=== PATIENT | female | born 1950 | race American Indian/Alaskan Native ===

== ENCOUNTER 2017-02-25 11:34 | Inpatient (IN) | payer MEDICARE, MEDICAID ==
[2017-02-25] MEDS ORDERED: Magnesium Hydroxide 400 MG/5 ML Susp 30 ML Cup PO PRN ×2 (12:17→14:15)
[2017-02-25] MEDS ORDERED: Polyethylene Glycol 3350 Powder 17 GM Packet PO PRN (12:17)
[2017-02-25] MEDS ORDERED: Sodium Chloride 0.9% 10 ML Syringe FLUSH PRN (12:17)
[2017-02-25] MEDS ORDERED: Ondansetron 4 MG/2 ML SDV IVPUSH PRN (12:17)
[2017-02-25] MEDS ORDERED: Acetaminophen 325 MG Tab PO PRN ×2 (12:17→14:15)
[2017-02-25] MEDS ORDERED: Albuterol/Ipratropium 3.0-0.5 MG/3 ML Neb Soln NEB PRN (12:17)
[2017-02-25] MEDS ORDERED: Sodium Chloride 0.9% 1,000 ML IV SCH (12:30)
--- NOTE | 2017-02-25 12:45 | PCM.HP ---
H&P History of Present Illness - General Date of Service: 02/25/17 Admit Problem/Dx: Admission Diagnosis/Problem Admission Diagnosis/Problem Hypoxia Source of Information: Patient, Family (daughter) History Limitations: Reports: Other (patient is not verbal but can she nods for yes lift head for no.) - History of Present Illness Initial Comments - Free Text/Narative: 67-year-old female was best medical history of CVA in 2010, diabetes mellitus type 2, anemia, generalized anxiety disorder, GERD, history of smoking, hypertension, hypothyroidism, neuropathic pain presented to the hospital from the long term where she was evaluated by Dr. Aj there today who called for admission to the hospital for possible pneumonia. History was obtained from Dr. Herrera, patient, and patient's daughter. Patient has been having upper respiratory symptoms worse cough for the past 10 days. She admitted having fever 2 days ago. Today her systolic blood pressure was 82. She was recently seen at the clinic and described Z-Ryne for sore throat. For the last 2-3 days patient has been having shortness breath and worsening of her cough. Her cough is productive of yellow sputum. She has been more weak and tired than usual. He also admitted that patient had saturation in the 80s yesterday and she fail in the bathroom when she tried to go use it by herself. She stated that she hit her head. No loss of consciousness. She had bruises on her right hip area. Otherwise she denies any pain from the fall. They deny headache, change in vision, change in her right-sided weakness from her previous stroke, nausea, vomiting, chest pain, palpitation, abdominal pain, constipation, blood in the stool, black stool, diarrhea, urinary symptoms, lower extremities edema, any other symptoms or concerns. No workup has been done - Related Data Allergies/Adverse Reactions: Allergies Allergy/AdvReac Type Severity Reaction Status Date / Time bee pollen [Bee Pollen] Allergy Anaphylactic Verified 02/11/17 10:18 Shock codeine Allergy Abdominal Verified 02/11/17 10:18 Pain levofloxacin [From Levaquin] Allergy Abdominal Verified 02/11/17 10:18 Pain Penicillins Allergy Hives Verified 02/11/17 10:18 tramadol Allergy Abdominal Verified 02/11/17 10:18 Pain venom-wasp [Wasp Venom] Allergy Anaphylactic Verified 02/11/17 10:18 Shock Home Medications: Home Meds Aspirin [Halfprin] 81 mg PO BEDTIME 01/21/14 [History] Clopidogrel Bisulfate [Clopidogrel] 75 mg PO DAILY 01/21/14 [History] Docusate Sodium/Sennosides [Senokot-S] 2 each PO BID 01/21/14 [History] Gabapentin [Gabapentin] 1,200 mg PO BID 01/21/14 [History] Lisinopril [Lisinopril] 5 mg PO DAILY 01/21/14 [History] Magnesium Hydroxide [Milk of Magnesia Concentrated] 10 ml PO DAILY PRN 01/21/14 [History] Montelukast [Singulair] 10 mg PO BEDTIME 01/21/14 [History] Polyethylene Glycol 3350 [MiraLAX] 17 gm PO DAILY 01/21/14 [History] Rosuvastatin Calcium [Crestor] 20 mg PO BEDTIME 01/21/14 [History] metFORMIN [Glucophage] 1,000 mg PO BIDMEALS 01/21/14 [History] DULoxetine HCl [Duloxetine HCl] 60 mg PO DAILY 03/12/15 [History] Fluticasone Propionate [Flonase] 1 inh NASBOTH DAILY 03/12/15 [History] Pantoprazole [Protonix] 40 mg PO ACDINNER 03/12/15 [History] Multivitamin [Multi-Day Vitamins] 1 tab PO DAILY 05/26/15 [History] Menthol [Biofreeze] 1 applic TOP TID 05/31/15 [History] EPINEPHrine [Epipen] 0.3 mg IM ASDIRECTED PRN 06/25/15 [History] Insulin Detemir [Levemir] 10 unit SQ BEDTIME 01/07/16 [History] Insulin Aspart [NovoLOG] 5 units SQ WITHBREAKFAST 02/11/17 [History] Acetaminophen 650 mg PO Q4H PRN 02/25/17 [History] Azithromycin [IJP: Azithromycin] 250 mg PO BEDTIME 02/25/17 [History] Cyanocobalamin (Vitamin B-12) [Cyanocobalamin Injection] 1,000 mcg IJ .FR [History] Levothyroxine Sodium [Synthroid] 75 mcg PO DAILY 02/25/17 [History] Melatonin 5 mg PO BEDTIME 02/25/17 [History] guaiFENesin 200 mg PO Q4H PRN 02/25/17 [History] Past Medical History HEENT History: Reports: Allergic Rhinitis Other HEENT History: DYSPHAGIA Cardiovascular History: Reports: High Cholesterol, Hypertension, PVD Respiratory History: Reports: None Gastrointestinal History: Reports: Chronic Constipation, GERD Genitourinary History: Reports: None COURT REPORTER History: Reports: None Musculoskeletal History: Reports: Fracture, Osteoarthritis, Other (See Below) Other Musculoskeletal History: CARPAL TUNNEL, FRACTURE OF RIGHT TALUS 03/30 Neurological History: Reports: CVA, TIA, Other (See Below) Other Neuro History: HEMIPLEGIA RIGHT SIDE; aphasia Psychiatric History: Reports: Depression Endocrine/Metabolic History: Reports: Diabetes, Type II, Hypothyroidism, Obesity /BMI 30+ Hematologic History: Reports: Anemia Immunologic History: Reports: None Oncologic (Cancer) History: Reports: None Dermatologic History: Reports: None - Infectious Disease History Infectious Disease History: Reports: Chicken Pox - Past Surgical History Head Surgeries/Procedures: Reports: None HEENT Surgical History: Reports: Tonsillectomy Cardiovascular Surgical History: Reports: Carotid Endarterectomy GI Surgical History: Reports: None Female Surgical History: Reports: None, Tubal Ligation Musculoskeletal Surgical History: Reports: Carpal Tunnel Social & Family History - Family History Family Medical History: Noncontributory - Tobacco Use Smoking Status *Q: Current Every Day Smoker Years of Tobacco use: 52 Packs/Tins Daily: 0.2 Used Tobacco, but Quit: Yes Month Tobacco Last Used: 200 Second Hand Smoke Exposure: No - Caffeine Use Caffeine Use: Reports: None - Alcohol Use Days Per Week of Alcohol Use: 0 - Recreational Drug Use Recreational Drug Use: No Drug Use in Last 12 Months: No - Living Situation & Occupation Living situation: Reports: Extended Care Facility Occupation: Retired H&P Review of Systems - Review of Systems: Review Of Systems: ROS reveals no pertinent complaints other than HPI. Exam - Exam Exam: See Below - Exam General: Alert, Cooperative (But nonverbal), Mild Distress, Other (She understands questions and follow commands appropriately). No: Moderate Distress , Severe Distress, Sedated, Lethargic, Obtunded HEENT: Conjunctiva Clear, EACs Clear, EOMI, Hearing Intact, Normal Nasal Septum , Posterior Pharynx Clear, Pupils Equal, Pupils Reactive, TMs Clear Neck: Supple, Trachea Midline Lungs: Crackles (Left mid lung), Wheezing (Left mid lung), Other (Mild tachypnea ). No: Rub, Stridor Cardiovascular: Regular Rate, Regular Rhythm GI/Abdominal Exam: Normal Bowel Sounds, Soft, Non-Tender, No Organomegaly, No Distention, No Abnormal Bruit, No Mass (Female) Exam: Deferred Rectal (Female) Exam: Deferred Back Exam: Normal Inspection, Full Range of Motion. No: CVA Tenderness (L), CVA Tenderness (R) Extremities: Normal Inspection, Normal Range of Motion, Non-Tender, No Pedal Edema, Normal Capillary Refill Peripheral Pulses: 2+: Radial (L), Radial (R) Skin: Warm, Dry, Intact Neurological: Other (Right-sided weakness, nonverbal) Psychiatric: Normal Mood, Other (However overall is difficult to assess due to being nonverbal) - Patient Data Result Diagrams: 02/25/17 12:50 02/25/17 12:50 *Q Meaningful Use (ADM) - VTE *Q VTE Criteria *Q: - Stroke *Q Stroke Criteria *Q: - AMI *Q AMI Criteria *Q: - Problem List (1) Healthcare-associated pneumonia SNOMED Code(s): 738521957 ICD Code: J18.9 - PNEUMONIA, UNSPECIFIED ORGANISM Status: Acute Priority : High Current Visit: Yes (2) Fall at long term SNOMED Code(s): 082718945 ICD Code: W19.XXXA - UNSPECIFIED FALL, INITIAL ENCOUNTER; Y92.129 - UNSP PLACE IN [facility] PLACE Status: Acute Priority: Medium Current Visit: Yes (3) Hypertension SNOMED Code(s): 90997120 ICD Code: I10 - ESSENTIAL (PRIMARY) HYPERTENSION Status: Chronic Current Visit: Yes (4) Hypoxia SNOMED Code(s): 717517225 ICD Code: R09.02 - HYPOXEMIA Status: Acute Priority: High Current Visit : Yes (5) Contusion of right hip SNOMED Code(s): 08856706 ICD Code: S70.01XA - CONTUSION OF RIGHT HIP, INITIAL ENCOUNTER Status: Acute Priority: Medium Current Visit: No Qualifiers: Encounter type: initial encounter Qualified Code(s): S70.01XA - Contusion of right hip, initial encounter (6) Diabetes mellitus type 2 in obese SNOMED Code(s): 14059505 ICD Code: E11.69 - TYPE 2 DIABETES MELLITUS WITH OTHER SPECIFIED COMPLICATION ; E66.9 - OBESITY, UNSPECIFIED Status: Chronic Current Visit: Yes (7) GERD (gastroesophageal reflux disease) SNOMED Code(s): 420891906 ICD Code: K21.9 - GASTRO-ESOPHAGEAL REFLUX DISEASE WITHOUT ESOPHAGITIS Status: Chronic Current Visit: Yes (8) History of CVA (cerebrovascular accident) SNOMED Code(s): 052964142 ICD Code: Z86.73 - PRSNL HX OF TIA (TIA), AND CEREB INFRC W/O RESID DEFICITS Status: Chronic Current Visit: Yes (9) Hypothyroidism SNOMED Code(s): 21649751 ICD Code: E03.9 - HYPOTHYROIDISM, UNSPECIFIED Status: Chronic Current Visit: Yes (10) Acute kidney injury SNOMED Code(s): 76044588 ICD Code: N17.9 - ACUTE KIDNEY FAILURE, UNSPECIFIED Status: Acute Current Visit: Yes (11) Hyponatremia SNOMED Code(s): 27374510 ICD Code: E87.1 - HYPO-OSMOLALITY AND HYPONATREMIA Status: Acute Current Visit: Yes (12) Hyperkalemia SNOMED Code(s): 50559412 ICD Code: E87.5 - HYPERKALEMIA Status: Acute Current Visit: Yes Problem List Initiated/Reviewed/Updated: Yes Orders Last 24hrs: Active Orders 24 hr Category Date Time Status Patient Status [ADT] Routine ADT 02/25/17 12:17 Active Accu Check [Blood Glucose Check, Bedside] [RC] Care 02/25/17 12:28 Active QIDACANDBED Height and Weight [RC] DAILY Care 02/25/17 12:17 Active Intake and Output [RC] Q6H Care 02/25/17 12:20 Active Notify Provider Vital Signs [RC] ASDIRECTED Care 02/25/17 12:20 Active Oxygen Therapy [RC] PRN Care 02/25/17 12:17 Active Peripheral IV Care [RC] . DIRECTED Care 02/25/17 12:22 Active RT Aerosol Therapy [RC] ASDIRECTED Care 02/25/17 12:24 Active Up With Assistance [RC] ASDIRECTED Care 02/25/17 12:17 Active Up ad Kayla [RC] ASDIRECTED Care 02/25/17 12:17 Active VTE/DVT Education [RC] PER UNIT ROUTINE Care 02/25/17 12:17 Active Vital Signs [RC] Q4H Care 02/25/17 12:17 Active PT Evaluation and Treatment [CONS] Routine Cons 02/25/17 12:17 Active Consistent Carbohydrate Diet [DIET] Diet 02/25/17 Dinner Active Chest 2V [CR] Stat Exams 02/25/17 12:17 Ordered Head wo Cont [CT] Routine Exams 02/25/17 12:26 Ordered Pelvis 1V or 2V [CR] Routine Exams 02/25/17 12:25 Ordered BASIC METABOLIC PANEL,BMP [CHEM] AM Lab 02/26/17 05:11 Ordered BASIC METABOLIC PANEL,BMP [CHEM] Routine Lab 02/25/17 12:25 Ordered CBC WITH AUTO DIFF [HEME] AM Lab 02/26/17 05:11 Ordered CBC WITH AUTO DIFF [HEME] Routine Lab 02/25/17 12:25 Ordered CULTURE BLOOD [BC] Stat Lab 02/25/17 12:24 Ordered CULTURE BLOOD [BC] Stat Lab 02/25/17 12:24 Ordered CULTURE SPUTUM + SMEAR [RM] Stat Lab 02/25/17 12:17 Uncollected MAGNESIUM [CHEM] AM Lab 02/26/17 05:11 Ordered Acetaminophen [Tylenol] Med 02/25/17 12:17 Active 650 mg PO Q4H PRN Albuterol/Ipratropium [DuoNeb 3.0-0.5 MG/3 ML] Med 02/25/17 12:17 Ordered 3 ml NEB Q4H PRN Enoxaparin [Lovenox] Med 02/26/17 09:00 Ordered 40 mg SUBCUT DAILY Magnesium Hydroxide [Milk of Magnesia] Med 02/25/17 12:17 Ordered 30 ml PO Q12H PRN Ondansetron [Zofran] Med 02/25/17 12:17 Ordered 4 mg IVPUSH Q6H PRN Polyethylene Glycol 3350 [MiraLAX] Med 02/25/17 12:17 Ordered 17 gm PO DAILY PRN Sodium Chloride 0.9% [Normal Saline] 1,000 ml Med 02/25/17 12:30 Ordered IV ASDIRECTED Sodium Chloride 0.9% [Normal Saline] 1,000 ml Med 02/25/17 12:30 Ordered IV ASDIRECTED Sodium Chloride 0.9% [Saline Flush] Med 02/25/17 12:17 Ordered 10 ml FLUSH ASDIRECTED PRN Blood Culture x2 Reflex Set [OM.PC] Stat Oth 02/25/17 12:17 Ordered Peripheral IV Insertion Adult [OM.PC] Routine Oth 02/25/17 12:17 Ordered Resuscitation Status Routine Resus Stat 02/25/17 12:17 Ordered Medication Orders Acetaminophen (Tylenol) 650 mg PO Q4H PRN PRN Reason: Pain (Mild 1-3)/fever Albuterol/Ipratropium (Duoneb 3.0-0.5 Mg/3 Ml) 3 ml NEB Q4H PRN PRN Reason: shortness of breath/wheezing Enoxaparin Sodium (Lovenox) 40 mg SUBCUT DAILY ZAHRAA Sodium Chloride (Normal Saline) 1,000 mls @ 500 mls/hr IV ASDIRECTED ZAHRAA Stop: 02/25/17 14:29 Sodium Chloride (Normal Saline) 1,000 mls @ 100 mls/hr IV ASDIRECTED ZAHRAA Stop: 02/25/17 22:29 Magnesium Hydroxide (Milk Of Magnesia) 30 ml PO Q12H PRN PRN Reason: Constipation Ondansetron HCl (Zofran) 4 mg IVPUSH Q6H PRN PRN Reason: Nausea/Vomiting Polyethylene Glycol (Miralax) 17 gm PO DAILY PRN PRN Reason: Constipation Sodium Chloride (Saline Flush) 10 ml FLUSH ASDIRECTED PRN PRN Reason: Keep Vein Open Assessment/Plan Comment:: Impression 67-year-old female with multiple comorbidities who presented with signs and symptoms of healthcare associated pneumonia with possible sepsis, acute kidney injury, hyperkalemia Plan: -Start Rocephin and azithromycin IVs -1 L of IV fluid normal saline at 500 mL per hour, then another 2 liters at 150 mL per hour -DuoNeb every 6 hours for coughing, shortness breath, hypoxia -Nasal oxygen -Flutter device -Hold lisinopril -Kayexalate 30 mg once -CT head ordered -Chest x-ray ordered -Pelvic x-ray ordered -Continue home medications -Physical therapy consult Lovenox for DVT prophylaxis DNR for CODE STATUS per patient and her daughter request Plan of care was discussed with patient and family and they indicated/ verbalized understanding agreed with the plan
[2017-02-25] MEDS ORDERED: Levofloxacin/Dextrose 5%-Water 750 MG in Premix Bag 1 BAG IV SCH (13:00)
[2017-02-25 13:27] LABS: CHLORIDE,CL 96 mmol/L (101-111); SODIUM,NA 131 mmol/L (135-145)
[2017-02-25] MEDS ORDERED: cefTRIAXone 1 GM Vial IVPUSH SCH (14:00)
[2017-02-25] MEDS ORDERED: guaiFENesin 100 MG/5 ML Soln 5 ML UD Cup PO PRN (14:15)
[2017-02-25] MEDS ORDERED: EPINEPHrine 1 MG/ML SDV IM PRN (14:15)
[2017-02-25] MEDS ORDERED: Sodium Polystyrene Sulfonate 15 GM/60 ML Susp 60 ML Bot PO ONE (14:22)
[2017-02-25] MEDS: Albuterol/Ipratropium 3.0-0.5 MG/3 ML Neb Soln NEB SCH ×2 (15:00→21:40)
[2017-02-25] MEDS: Azithromycin 500 MG in Sodium Chloride 0.9% 250 ML IV SCH (15:07)
--- NOTE | 2017-02-25 16:21 | CR ---
Clinical history: 67-year-old hospitalized patient with "crackles" left lung and a history of "fall". Interpretation: PA lateral chest abnormal. Increased cardiac silhouette, generalized pulmonary venous congestion and atypical pulmonary edema (v ersus underlying lobar pneumonia) on the left. Bibasilar dependent new subpulmonic pleural effusions since 26 May 2015 exam. New small nodular or mass lesion peripherally the axillary segment right upper lobe. Abnormal subluxation right humeral head from the glenoid right scapula. No fracture. CONCLUSION: Cardiovascular decompensation (CHF) since comparison film 26 May 2015. Right upper lobe mass. Possible left perihilar pneumonia. Clinical?
--- NOTE | 2017-02-25 16:30 | CT ---
Clinical history: 67-year-old hospitalized female with radiographic evidence CHF/lung mass or infiltr ate who fell yesterday, striking the head. Scan technique: Volume acquisition of data emergency unenhanced CT scan of the head and brain obtaine d with patient lying supine on the Siemens multi slice scanner [facility]. All data archived in the PAC system for storage and study. Interpretation: Abnormal but unchanged when compared directly to CT images 12 March 2015. 1. Uniformly thick bony calvarium without sign of fracture, underlying brain contusion or epidural/woods bdural hematoma. 2. Evidence of extensive left hemispheric infarct and encephalomalacia ( brain) unchanged since D 2014 exam. 3. No new signs of supratentorial or posterior fossa mass lesion. Mild midline shift to the left. No new hydrocephalus. 4. No sign of acute intracerebral/intraventricular/subarachnoid bleed.
--- NOTE | 2017-02-25 16:32 | CR ---
Title history: 67-year-old hospitalized patient with CHF and possible pneumonia (RUL lung mass) who f ell. Interpretation: AP pelvis/hips confirm chronic severe lower lumbar disc disease with reactive arthrit ic changes of the spine. Generalized osteopenia and what appears to be occult nondisplaced inferior pubic ramus right hemipelv is not evident on previous CT exam June 2015. Point tenderness?. No sign of other pelvic or either h ip fracture/dislocation. Symmetric spacing normal-appearing SI and hip joints. No foreign bodies.
[2017-02-25] MEDS ORDERED: Pantoprazole 40 MG Tab.CR PO SCH (17:00)
[2017-02-25] MEDS: Insulin Aspart 100 Units/ML 3 ML Pen SUBCUT SCH ×2 (17:54→21:52)
[2017-02-25] MEDS: Sodium Chloride 0.9% 1,000 ML IV SCH ×2 (17:59→21:44)
[2017-02-25] MEDS ORDERED: Non-Formulary Medication 1 Each (Metformin [Glucophage] 1,000 MG) PO SCH (18:00)
[2017-02-25] MEDS ORDERED: Sodium Chloride 0.9% 500 ML IV SCH (20:30)
[2017-02-25] MEDS ORDERED: Insulin Detemir 100 Units/ML 3 ML Pen SUBCUT SCH (21:00)
[2017-02-25] MEDS ORDERED: Montelukast 10 MG Tab PO SCH (21:00)
[2017-02-25] MEDS ORDERED: Docusate Sodium 100 MG Cap PO SCH (21:00)
[2017-02-25] MEDS ORDERED: MELATONIN 5 MG PO SCH (21:00)
[2017-02-25] MEDS ORDERED: Rosuvastatin 10 MG Tab PO SCH (21:00)
[2017-02-25] MEDS ORDERED: Aspirin 81 MG Tab.EC PO SCH (21:00)
[2017-02-25] MEDS: BIOFREEZE TOP SCH (21:48)
[2017-02-25] MEDS: Gabapentin 400 MG Cap PO SCH (21:48)
[2017-02-25] MEDS ORDERED: Albumin 25% 12.5 GM/50 ML BAG IV ONE (22:46)
[2017-02-26] MEDS: Albuterol/Ipratropium 3.0-0.5 MG/3 ML Neb Soln NEB SCH ×2 (01:14→07:49)
[2017-02-26] MEDS ORDERED: Levothyroxine 75 MCG Tab PO SCH (06:00)
[2017-02-26 07:03] LABS: CHLORIDE,CL 99 mmol/L (101-111); SODIUM,NA 133 mmol/L (135-145)
[2017-02-26 07:49] VITALS: BP 73/47
[2017-02-26] MEDS ORDERED: Insulin Aspart 100 Units/ML 3 ML Pen SUBCUT SCH (08:00)
[2017-02-26] MEDS ORDERED: Albumin 25% 12.5 GM/50 ML BAG IV ONE (08:05)
[2017-02-26] MEDS ORDERED: Sodium Chloride 0.9% 500 ML IV ONE (08:15)
[2017-02-26] MEDS: Gabapentin 400 MG Cap PO SCH (08:42)
[2017-02-26] MEDS: BIOFREEZE TOP SCH (08:42)
[2017-02-26] MEDS: Insulin Aspart 100 Units/ML 3 ML Pen SUBCUT SCH ×2 (08:43→12:45)
[2017-02-26] MEDS ORDERED: Norepinephrine 4 MG in Dextrose 5% in Water 246 ML IV SCH ×2 (08:45)
[2017-02-26] MEDS ORDERED: Fluticasone Propionate Nasal Spray 16 GM Bottle NASBOTH SCH (09:00)
[2017-02-26] MEDS ORDERED: Multivitamins,Therapeutic Tab PO SCH (09:00)
[2017-02-26] MEDS ORDERED: Polyethylene Glycol 3350 Powder 17 GM Packet PO SCH (09:00)
[2017-02-26] MEDS ORDERED: Enoxaparin 30 MG/0.3 ML Syringe SUBCUT SCH (09:00)
[2017-02-26] MEDS ORDERED: Enoxaparin 40 MG/0.4 ML Syringe SUBCUT SCH (09:00)
[2017-02-26] MEDS ORDERED: Clopidogrel 75 MG Tab PO SCH (09:00)
[2017-02-26] MEDS ORDERED: Vancomycin 1 GM AdvVial ONE (09:09)
--- NOTE | 2017-02-26 09:21 | PCM.DCSUM1 ---
Discharge Summary - Hospital Course Free Text/Narrative:: 67-year-old female was best medical history of CVA in 2010, diabetes mellitus type 2, anemia, generalized anxiety disorder, GERD, history of smoking, hypertension, hypothyroidism, neuropathic pain presented to the hospital on from the residential where she was evaluated by her doctor there who called for admission to the hospital for possible pneumonia. Patient has been having upper respiratory symptoms worse cough for the past 10 days. She admitted having fever 2 days prior to admission. Her systolic blood pressure was 82 at residential and sats in the 80s. She was recently seen at the clinic and described [facility] for sore throat. For the last 3-4 days patient has been having shortness breath and worsening of her cough. Her cough is productive of yellow sputum. She has been more weak and tired than usual. She fell in the bathroom at the residential when she tried to go use it by herself. She stated that she hit her head. No loss of consciousness. She had bruises on her right hip area. Otherwise she denies any pain from the fall. No headache, change in vision, change in her right-sided weakness from her previous stroke, nausea, vomiting, chest pain, palpitation, abdominal pain, constipation, blood in the stool, black stool, diarrhea, urinary symptoms, lower extremities edema, any other symptoms or concerns. Upon admission to the hospital she was started on IV fluid, Azithromycin and Rocephin. Chest x-ray reported "generalized pulmonary venous congestion and atypical urinary edema (underlying lobar pneumonia) on the left. Bibasilar dependent new subpulmonic pleural effusion since May 19 exam." Pelvic x- ray reported "generalized osteopenia and what appears to be called nondisplaced inferior pubic ramus right hemipelvis not evident on previous CT exam June 2015 ". Laboratory data on admission reported WBC 8.3. Hemoglobin 10.3. Platelet 474. Neutrophils 72.7%. Sodium 131. Potassium 5.3. Creatinine 2.6. Patient creatinine was normal in May. BUN 42. During hospitalization patient systolic blood pressure was in the low 90s and upper 80s. She received 3500 mL of normal saline between boluses and infusion since yesterday about 3 PM. She received 1 dose of albumin 25% which improved her systolic blood pressure 130 at midnight. Yesterday around 10 PM I evaluated the patient and she did not look in distress also her systolic blood pressure was 87. She had no basilar crackles so I ordered the albumin. Around midnight patient had syncopal episode while using the restroom. She recovered spontaneously. Telemetry since then did not show any acute abnormalities This morning her blood pressure dropped to 73/47. Her laboratory data from this morning report WBC 8.6. Hemoglobin 9.2. Creatinine 3.3. BUN 43. Lactic acid 2.2. Troponin less than 0.02. Magnesium 2.0. Blood glucose 156. Patient had unmeasured urine output. This morning I give her additional 500 mL of normal saline which brought her systolic blood pressure to 96. However blood pressure dropped again to upper 80s so she was started on Levophed protocol. Also she is given a dose of albumin 25%. Patient looked pale but she was answering my questions. She answered good when asked about how she was feeling and answered no when I asked about dizziness. She was able to sit up to listen to her lungs. She had basal crackles. I spoke to Dr. Quijaon hospitalist at [facility] who kindly accepted the patient to be transferred to his ICU service. Patient looked better just before being transferred and she did not look as pale. Vancomycin 1 g is being started. Patient was stable at the time of leaving the facility. Discharge diagnoses Septic shock Severe sepsis Hypoxia Healthcare associated pneumonia Acute kidney injury Hypernatremia Hyperkalemia, resolved Diabetes mellitus type 2 Essential hypertension Anemia History of CVA Hypothyroidism - Discharge Data Discharge Date: 02/26/17 Discharge Disposition: DC/Tfer to Acute Hospital 02 Condition: Stable - Discharge Diagnosis/Problem(s) (1) Healthcare-associated pneumonia SNOMED Code(s): 632400339 ICD Code: J18.9 - PNEUMONIA, UNSPECIFIED ORGANISM Status: Acute Priority : High Current Visit: Yes (2) Fall at residential SNOMED Code(s): 351684055 ICD Code: W19.XXXA - UNSPECIFIED FALL, INITIAL ENCOUNTER; Y92.129 - UNSP PLACE IN HALFWAY PLACE Status: Acute Priority: Medium Current Visit: Yes (3) Hypertension SNOMED Code(s): 66267581 ICD Code: I10 - ESSENTIAL (PRIMARY) HYPERTENSION Status: Chronic Current Visit: Yes (4) Hypoxia SNOMED Code(s): 123541547 ICD Code: R09.02 - HYPOXEMIA Status: Acute Priority: High Current Visit : Yes (5) Contusion of right hip SNOMED Code(s): 31468239 ICD Code: S70.01XA - CONTUSION OF RIGHT HIP, INITIAL ENCOUNTER Status: Acute Priority: Medium Current Visit: No Qualifiers: Encounter type: initial encounter Qualified Code(s): S70.01XA - Contusion of right hip, initial encounter (6) Diabetes mellitus type 2 in obese SNOMED Code(s): 75671010 ICD Code: E11.69 - TYPE 2 DIABETES MELLITUS WITH OTHER SPECIFIED COMPLICATION ; E66.9 - OBESITY, UNSPECIFIED Status: Chronic Current Visit: Yes (7) GERD (gastroesophageal reflux disease) SNOMED Code(s): 055943462 ICD Code: K21.9 - GASTRO-ESOPHAGEAL REFLUX DISEASE WITHOUT ESOPHAGITIS Status: Chronic Current Visit: Yes (8) History of CVA (cerebrovascular accident) SNOMED Code(s): 698108254 ICD Code: Z86.73 - PRSNL HX OF TIA (TIA), AND CEREB INFRC W/O RESID DEFICITS Status: Chronic Current Visit: Yes (9) Hypothyroidism SNOMED Code(s): 54547559 ICD Code: E03.9 - HYPOTHYROIDISM, UNSPECIFIED Status: Chronic Current Visit: Yes (10) Acute kidney injury SNOMED Code(s): 38661886 ICD Code: N17.9 - ACUTE KIDNEY FAILURE, UNSPECIFIED Status: Acute Current Visit: Yes (11) Hyponatremia SNOMED Code(s): 98263090 ICD Code: E87.1 - HYPO-OSMOLALITY AND HYPONATREMIA Status: Acute Current Visit: Yes (12) Hyperkalemia SNOMED Code(s): 35282900 ICD Code: E87.5 - HYPERKALEMIA Status: Acute Current Visit: Yes (13) Severe sepsis SNOMED Code(s): 69817261 ICD Code: A41.9 - SEPSIS, UNSPECIFIED ORGANISM; R65.20 - SEVERE SEPSIS WITHOUT SEPTIC SHOCK Status: Acute Priority: High Current Visit: Yes - Patient Summary/Data Consults: Consultations 02/25/17 12:17 PT Evaluation and Treatment [CONS] Routine - Discharge Plan Home Medications: Home Meds Aspirin [Halfprin] 81 mg PO BEDTIME 01/21/14 [History] Clopidogrel Bisulfate [Clopidogrel] 75 mg PO DAILY 01/21/14 [History] Docusate Sodium/Sennosides [Senokot-S] 2 each PO BID 01/21/14 [History] Gabapentin 1,200 mg PO BID 01/21/14 [History] Lisinopril 5 mg PO DAILY 01/21/14 [History] Magnesium Hydroxide [Milk of Magnesia Concentrated] 10 ml PO DAILY PRN 01/21/14 [History] Montelukast [Singulair] 10 mg PO BEDTIME 01/21/14 [History] Polyethylene Glycol 3350 [MiraLAX] 17 gm PO DAILY 01/21/14 [History] Rosuvastatin Calcium [Crestor] 20 mg PO BEDTIME 01/21/14 [History] metFORMIN [Glucophage] 1,000 mg PO BIDMEALS 01/21/14 [History] DULoxetine HCl [Duloxetine HCl] 60 mg PO DAILY 03/12/15 [History] Fluticasone Propionate [Flonase] 1 inh NASBOTH DAILY 03/12/15 [History] Pantoprazole [ProTONIX] 40 mg PO ACDINNER 03/12/15 [History] Multivitamin [Multi-Day Vitamins] 1 tab PO DAILY 05/26/15 [History] Menthol [Biofreeze] 1 applic TOP TID 05/31/15 [History] EPINEPHrine [Epipen] 0.3 mg IM ASDIRECTED PRN 06/25/15 [History] Insulin Detemir [Levemir] 10 unit SQ BEDTIME 01/07/16 [History] Insulin Aspart [NovoLOG] 5 units SQ WITHBREAKFAST 02/11/17 [History] Acetaminophen 650 mg PO Q4H PRN 02/25/17 [History] Cyanocobalamin (Vitamin B-12) [Cyanocobalamin Injection] 1,000 mcg IJ .FR [History] Levothyroxine Sodium [Synthroid] 75 mcg PO DAILY 02/25/17 [History] Melatonin 5 mg PO BEDTIME 02/25/17 [History] guaiFENesin 200 mg PO Q4H PRN 02/25/17 [History] - General Info Date of Service: 02/26/17 Subjective Update: Patient denies chest pain, palpitation, abdominal pain, any other new symptoms since admission - Patient Data Vitals - Most Recent: Last Vital Signs Temp 35.5 C 02/26/17 07:00 Pulse 98 02/26/17 07:00 Resp 20 02/26/17 03:00 BP 73/47 L 02/26/17 07:00 Pulse Ox 91 L 02/26/17 03:00 Weight - Most Recent: 62.142 kg I&O - Last 24 hours: Intake & Output 02/25/17 02/26/17 02/26/17 22:59 06:59 14:59 Intake Total 2947 1500 Balance 2947 1500 Lab Results - Last 24 hrs: Laboratory Results - last 24 hr 02/25/17 02/25/17 02/25/17 Range/Units 12:50 12:50 17:03 WBC 8.3 (5.0-10.0) 10^3/uL RBC 4.10 L (4.2-5.4) 10^6/uL Hgb 10.3 L D (12.0-16.0) g/dL Hct 32.4 L (37.0-47.0) % MCV 79.0 L D (80-100) fL MCH 25.1 L (27.0-34.0) pg MCHC 31.8 L (33.0-35.0) g/dL Plt Count 474 H D (150-450) 10^3/uL Neut % (Auto) 72.7 (42.2-75.2) % Lymph % (Auto) 15.1 L (20.5-50.1) % Bay % (Auto) 11.5 H (2-8) % Eos % (Auto) 0.5 L (1.0-3.0) % Baso % (Auto) 0.2 (0.0-1.0) % Sodium 131 L (135-145) mmol/L Potassium 5.3 H (3.6-5.0) mmol/L Chloride 96 L (101-111) mmol/L Carbon Dioxide 24.0 (21.0-31.0) mmol/L Anion Gap 16.3 BUN 42 H D (7-18) mg/dL Creatinine 2.6 H D (0.6-1.3) mg/dL Est Cr Clr Drug Dosing TNP Estimated GFR (MDRD) 18 BUN/Creatinine Ratio Glucose 131 H (74-105) mg/dL POC Glucose 135 H (70-105) mg/dl Lactic Acid (0.5-2.2) mmol/L Calcium 8.7 (8.4-10.2) mg/dl Magnesium (1.8-2.5) mg/dL Total Bilirubin (0.2-1.0) mg/dL AST (10-42) IU/L ALT (10-60) IU/L Alkaline Phosphatase (42-121) IU/L Troponin I (0.00-0.02) ng/ml Total Protein (6.7-8.2) g/dl Albumin (3.2-5.5) g/dl Globulin Albumin/Globulin Ratio TSH, Ultra Sensitive (0.45-5.33) uIu/mL 02/25/17 02/26/17 02/26/17 Range/Units 21:18 00:52 06:15 WBC 8.6 (5.0-10.0) 10^3/uL RBC 3.70 L (4.2-5.4) 10^6/uL Hgb 9.2 L (12.0-16.0) g/dL Hct 30.7 L (37.0-47.0) % MCV 83.0 D (80-100) fL MCH 24.9 L (27.0-34.0) pg MCHC 30.0 L (33.0-35.0) g/dL Plt Count 412 (150-450) 10^3/uL Neut % (Auto) 84.4 H (42.2-75.2) % Lymph % (Auto) 7.9 L (20.5-50.1) % Bay % (Auto) 7.5 (2-8) % Eos % (Auto) 0.1 L (1.0-3.0) % Baso % (Auto) 0.1 (0.0-1.0) % Sodium (135-145) mmol/L Potassium (3.6-5.0) mmol/L Chloride (101-111) mmol/L Carbon Dioxide (21.0-31.0) mmol/L Anion Gap BUN (7-18) mg/dL Creatinine (0.6-1.3) mg/dL Est Cr Clr Drug Dosing Estimated GFR (MDRD) BUN/Creatinine Ratio Glucose (74-105) mg/dL POC Glucose 156 H 186 H (70-105) mg/dl Lactic Acid (0.5-2.2) mmol/L Calcium (8.4-10.2) mg/dl Magnesium (1.8-2.5) mg/dL Total Bilirubin (0.2-1.0) mg/dL AST (10-42) IU/L ALT (10-60) IU/L Alkaline Phosphatase (42-121) IU/L Troponin I (0.00-0.02) ng/ml Total Protein (6.7-8.2) g/dl Albumin (3.2-5.5) g/dl Globulin Albumin/Globulin Ratio TSH, Ultra Sensitive (0.45-5.33) uIu/mL 02/26/17 02/26/17 02/26/17 Range/Units 06:15 06:15 06:15 WBC (5.0-10.0) 10^3/uL RBC (4.2-5.4) 10^6/uL Hgb (12.0-16.0) g/dL Hct (37.0-47.0) % MCV (80-100) fL MCH (27.0-34.0) pg MCHC (33.0-35.0) g/dL Plt Count (150-450) 10^3/uL Neut % (Auto) (42.2-75.2) % Lymph % (Auto) (20.5-50.1) % Bay % (Auto) (2-8) % Eos % (Auto) (1.0-3.0) % Baso % (Auto) (0.0-1.0) % Sodium 133 L (135-145) mmol/L Potassium 4.5 (3.6-5.0) mmol/L Chloride 99 L (101-111) mmol/L Carbon Dioxide 20.0 L (21.0-31.0) mmol/L Anion Gap 18.5 BUN 43 H (7-18) mg/dL Creatinine 3.3 H (0.6-1.3) mg/dL Est Cr Clr Drug Dosing 15.27 Estimated GFR (MDRD) 14 BUN/Creatinine Ratio 13.03 Glucose 167 H (74-105) mg/dL POC Glucose (70-105) mg/dl Lactic Acid 2.2 (0.5-2.2) mmol/L Calcium 7.8 L (8.4-10.2) mg/dl Magnesium 2.0 (1.8-2.5) mg/dL Total Bilirubin 0.3 (0.2-1.0) mg/dL AST 38 (10-42) IU/L ALT 25 (10-60) IU/L Alkaline Phosphatase 74 (42-121) IU/L Troponin I < 0.02 (0.00-0.02) ng/ml Total Protein 6.7 (6.7-8.2) g/dl Albumin 3.0 L (3.2-5.5) g/dl Globulin 3.7 Albumin/Globulin Ratio 0.81 TSH, Ultra Sensitive 1.07 (0.45-5.33) uIu/mL 02/26/ Range/Units 07:52 WBC (5.0-10.0) 10^3/uL RBC (4.2-5.4) 10^6/uL Hgb (12.0-16.0) g/dL Hct (37.0-47.0) % MCV (80-100) fL MCH (27.0-34.0) pg MCHC (33.0-35.0) g/dL Plt Count (150-450) 10^3/uL Neut % (Auto) (42.2-75.2) % Lymph % (Auto) (20.5-50.1) % Bay % (Auto) (2-8) % Eos % (Auto) (1.0-3.0) % Baso % (Auto) (0.0-1.0) % Sodium (135-145) mmol/L Potassium (3.6-5.0) mmol/L Chloride (101-111) mmol/L Carbon Dioxide (21.0-31.0) mmol/L Anion Gap BUN (7-18) mg/dL Creatinine (0.6-1.3) mg/dL Est Cr Clr Drug Dosing Estimated GFR (MDRD) BUN/Creatinine Ratio Glucose (74-105) mg/dL POC Glucose 156 H (70-105) mg/dl Lactic Acid (0.5-2.2) mmol/L Calcium (8.4-10.2) mg/dl Magnesium (1.8-2.5) mg/dL Total Bilirubin (0.2-1.0) mg/dL AST (10-42) IU/L ALT (10-60) IU/L Alkaline Phosphatase (42-121) IU/L Troponin I (0.00-0.02) ng/ml Total Protein (6.7-8.2) g/dl Albumin (3.2-5.5) g/dl Globulin Albumin/Globulin Ratio TSH, Ultra Sensitive (0.45-5.33) uIu/mL Med Orders - Current: Current Medications Acetaminophen (Tylenol) 650 mg PO Q4H PRN PRN Reason: Pain (Mild 1-3)/fever Acetaminophen (Tylenol) 650 mg PO Q4H PRN PRN Reason: Pain/Fever Albuterol/Ipratropium (Duoneb 3.0-0.5 Mg/3 Ml) 3 ml NEB Q6HRRT [facility] Last Admin: 02/26/17 07:49 Dose: 3 ml Aspirin (Halfprin) 81 mg PO BEDTIME [facility] Last Admin: 02/25/17 21:47 Dose: 81 mg Ceftriaxone Sodium (Rocephin) 1 gm IVPUSH Q24H [facility] Last Admin: 02/25/17 14:59 Dose: 1 gm Clopidogrel Bisulfate (Plavix) 75 mg PO DAILY [facility] Last Admin: 02/26/17 08:42 Dose: Not Given Enoxaparin Sodium (Lovenox) 30 mg SUBCUT DAILY [facility] Last Admin: 02/26/17 08:42 Dose: Not Given Epinephrine HCl (Adrenalin) 0.3 mg IM ASDIRECTED PRN PRN Reason: Anaphylatic shock Fluticasone Propionate (Flonase) 0 gm NASBOTH DAILY [facility] Last Admin: 02/26/17 08:42 Dose: Not Given Gabapentin (Neurontin) 1,200 mg PO BID [facility] Last Admin: 02/26/17 08:42 Dose: Not Given Guaifenesin (Robitussin) 200 mg PO Q4H PRN PRN Reason: Cough Sodium Chloride (Normal Saline) 1,000 mls @ 150 mls/hr IV ASDIRECTED [facility] Stop: 02/26/17 19:09 Last Infusion: 02/26/17 05:00 Dose: Infused Azithromycin 500 mg/ Sodium (Chloride) 250 mls @ 250 mls/hr IV Q24H [facility] Last Admin: 02/25/17 15:07 Dose: 250 mls/hr Sodium Chloride (Normal Saline) 500 mls @ 999 mls/hr IV .BOLUS [facility] Last Infusion: 02/26/17 06:35 Dose: Infused Norepinephrine Bitartrate 4 mg (/ Dextrose/Water) 250 mls @ 7.5 mls/hr IV TITRATE ZAHRAA; 2 MCG/MIN PRN Reason: Protocol Last Admin: 02/26/17 08:54 Dose: 2 mcg/min, 7.5 mls/hr Insulin Aspart (Novolog) 5 unit SUBCUT WITHBREAKFAST [facility] Last Admin: 02/26/17 08:41 Dose: Not Given Insulin Aspart (Novolog) 0 unit SUBCUT QIDACANDBED ZAHRAA PRN Reason: Protocol Last Admin: 02/26/17 08:43 Dose: Not Given Insulin Detemir (Levemir) 10 unit SUBCUT BEDTIME [facility] Last Admin: 02/25/17 21:51 Dose: 10 units Levothyroxine Sodium (Levothyroxine) 75 mcg PO ACBREAKFAST [facility] Last Admin: 02/26/17 05:41 Dose: 75 mcg Magnesium Hydroxide (Milk Of Magnesia) 30 ml PO Q12H PRN PRN Reason: Constipation Magnesium Hydroxide (Milk Of Magnesia) 30 ml PO DAILY PRN PRN Reason: Constipation Montelukast Sodium (Singulair) 10 mg PO BEDTIME [facility] Last Admin: 02/25/17 21:47 Dose: 10 mg Multivitamins (Thera) 1 each PO DAILY [facility] Last Admin: 02/26/17 08:42 Dose: Not Given Nf(Melatonin 5 Mg)* (Own Med*) 5 mg PO BEDTIME [facility] Last Admin: 02/25/17 21:48 Dose: 5 mg Nf-Biofreeze 1 (Applic*Own Med*) 1 applic TOP TID [facility] Last Admin: 02/26/17 08:42 Dose: Not Given Ondansetron HCl (Zofran) 4 mg IVPUSH Q6H PRN PRN Reason: Nausea/Vomiting Last Admin: 02/25/17 16:19 Dose: 4 mg Pantoprazole Sodium (Protonix) 40 mg PO ACDINNER [facility] Last Admin: 02/25/17 17:57 Dose: 40 mg Polyethylene Glycol (Miralax) 17 gm PO DAILY PRN PRN Reason: Constipation Polyethylene Glycol (Miralax) 17 gm PO DAILY [facility] Last Admin: 02/26/17 08:42 Dose: Not Given Rosuvastatin Calcium (Crestor) 20 mg PO BEDTIME [facility] Last Admin: 02/25/17 21:45 Dose: 20 mg Senna/Docusate Sodium (Senna Plus) 2 tab PO BID [facility] Last Admin: 02/26/17 08:42 Dose: Not Given Sodium Chloride (Saline Flush) 10 ml FLUSH ASDIRECTED PRN PRN Reason: Keep Vein Open Discontinued Medications Albuterol/Ipratropium (Duoneb 3.0-0.5 Mg/3 Ml) 3 ml NEB Q4H PRN PRN Reason: shortness of breath/wheezing Enoxaparin Sodium (Lovenox) 40 mg SUBCUT DAILY [facility] Sodium Chloride (Normal Saline) 1,000 mls @ 500 mls/hr IV ASDIRECTED [facility] Stop: 02/25/17 14:29 Last Admin: 02/25/17 15:04 Dose: 500 mls/hr Levofloxacin/Dextrose 750 mg/ (Premix) 150 mls @ 100 mls/hr IV Q24H [facility] Albumin Human (Flexbumin 25%) 12.5 gm in 50 mls @ 100 mls/hr IV ONETIME ONE Stop: 02/25/17 23:15 Last Admin: 02/25/17 23:15 Dose: 100 mls/hr Albumin Human (Flexbumin 25%) 12.5 gm in 50 mls @ 100 mls/hr IV ONETIME ONE Stop: 02/26/17 08:34 Last Admin: 02/26/17 08:37 Dose: 100 mls/hr Sodium Chloride (Normal Saline) 500 mls @ 999 mls/hr IV .BOLUS ONE Stop: 02/26/17 08:45 Last Admin: 02/26/17 08:27 Dose: 999 mls/hr Non-Formulary Medication (Metformin [Glucophage]) 1,000 mg PO BIDMEALS [facility] Sodium Polystyrene Sulfonate (Kayexalate) 30 gm PO ONETIME ONE Stop: 02/25/17 14:23 Last Admin: 02/25/17 15:14 Dose: 30 gm - Exam General: Reports: Alert, Oriented, Cooperative, No Acute Distress. Denies: Sedated, Lethargic, Obtunded HEENT: Reports: Pupils Equal, Pupils Reactive, EOMI, Mucous Membr. Moist/[place] Site 2 Neck: Reports: Supple, Trachea Midline, No JVD Lungs: Reports: Crackles. Denies: Rub, Stridor, Wheezing Cardiovascular: Reports: Regular Rate, Regular Rhythm GI/Abdominal Exam: Normal Bowel Sounds, Soft, Non-Tender, No Organomegaly, No Distention, No Abnormal Bruit, No Mass (Female) Exam: Deferred Rectal (Female) Exam: Deferred Back Exam: Reports: Normal Inspection, Full Range of Motion Extremities: Normal Inspection, Normal Range of Motion, Non-Tender, No Pedal Edema, Normal Capillary Refill Skin: Reports: Dry, Intact Neurological: Reports: No New Focal Deficit Psy/Mental Status: Reports: Alert *Q Meaningful Use (DIS) - VTE *Q VTE Criteria *Q: - Stroke *Q Stroke Criteria *Q: - AMI *Q AMI Criteria *Q:
[2017-02-26] MEDS: Azithromycin 500 MG in Sodium Chloride 0.9% 250 ML IV SCH (13:01)
== END 2017-02-26 09:25 | DRG 871 ==
LOC: DL.MS 12:17
PROVIDERS: ADMIT Family Medicine; ATTEND Family Medicine
DX: A41.9 Sepsis, unspecified organism (principal); J18.9 Pneumonia, unspecified organism; N17.9 Acute kidney failure, unspecified; E87.1 Hypo-osmolality and hyponatremia; I69.351 Hemiplegia and hemiparesis following cerebral infarction affecting right dominant side; E11.9 Type 2 diabetes mellitus without complications; I10 Essential (primary) hypertension; R09.02 Hypoxemia; S70.01XA Contusion of right hip, initial encounter; E66.9 Obesity, unspecified; K21.9 Gastro-esophageal reflux disease without esophagitis; E03.9 Hypothyroidism, unspecified; E87.5 Hyperkalemia; W18.30XA Fall on same level, unspecified, initial encounter; Y93.89 Activity, other specified; Y92.012 Bathroom of single-family (private) house as the place of occurrence of the external cause; F41.9 Anxiety disorder, unspecified; Z88.0 Allergy status to penicillin; Z88.8 Allergy status to other drugs, medicaments and biological substances; Z79.899 Other long term (current) drug therapy; I69.391 Dysphagia following cerebral infarction; R13.10 Dysphagia, unspecified; F17.200 Nicotine dependence, unspecified, uncomplicated
CPT/HCPCS: 36415; 70450; 71020; 72170; 80048; 80053; 82962; 83605; 83735; 84443; 84484; 85025; 87040; 94640; A9270-GY; J0456; J0696; J1815-GY; J2405; J3370; J7030; J7040; J7050; J7060; P9047